=== PATIENT | female | born 1975 | race African-American/Black ===

== ENCOUNTER 2021-03-14 10:35 | Inpatient (IN) ==
[2021-03-14] MEDS ORDERED: hydrALAZINE 20 MG/1 ML VIAL IV STA (10:59)
[2021-03-14 11:27] LABS: Basophils % 0.3 % (0.0-0.8); Eosinophils # 0.1 10*3/uL (0.0-0.87); Eosinophils % 1.6 % (0.00-10.9); Hematocrit 19.5 VOL% (35.7-47.0); Immature Granulocytes % 1.6 %; Lymphocytes # 0.3 10*3/uL (1.4-4.0); Lymphocytes % 5.4 % (21.3-54.2); Mean Corpuscular HGB Conc 31.3 GM/DL (32-36); Mean Platelet Volume 10.4 FL (9.6-12.0); Monocytes % 6.4 % (1.7-12.7); Neutrophils % 84.7 % (38.7-73.9); Platelet Count 247 T/CUMM (130-400); Red Blood Count 2.35 MC/CUMM (3.8-5.5); Red Cell Distribution Width 16.4 % (9.3-17.3); White Blood Count 6.3 T/CUMM (4-12)
[2021-03-14 11:32] LABS: Hemoglobin 6.1 GM/DL (12.0-16.0)
[2021-03-14 11:52] LABS: Albumin 3.4 G/DL (3.4-5.0); Bilirubin,Total 0.6 MG/DL (0.20-1.00); Osmolality,Calculated 312.5 MOS/KG (273-304); Total Protein 7.9 G/DL (6.4-8.2)
[2021-03-14 11:57] LABS: Calcium 5.3 MG/DL (8.5-10.1)
[2021-03-14] MEDS ORDERED: CALCIUM GLUCONATE 1,000 MG in SODIUM CHLORIDE 0.9% 100 ML IV ONE ×2 (12:35→13:37)
[2021-03-14] MEDS ORDERED: ACETAMINOPHEN 500 MG TABLET PO STA (12:44)
[2021-03-14] MEDS ORDERED: ACETAMINOPHEN 325 MG TABLET PO PRN (13:27)
[2021-03-14] MEDS ORDERED: GLUCAGON 1 MG VIAL IM PRN (13:27)
[2021-03-14] MEDS ORDERED: ONDANSETRON 4 MG/2 ML VIAL IV PRN (13:27)
[2021-03-14] MEDS ORDERED: DEXTROSE 50% 25 GM/50 ML VIAL IV PRN (13:27)
[2021-03-14] MEDS ORDERED: HEPARIN 5,000 UNIT/1 ML VIAL SUBCUT SCH (13:30)
[2021-03-14] MEDS ORDERED: SODIUM CHLORIDE 0.9% 1,000 ML IV PRN (13:31)
[2021-03-14 14:37] LABS: Uric Acid 13.9 MG/DL (2.6-6.0)
[2021-03-14 14:57] LABS: % Iron Saturation 21.1 % (18-50); Ferritin 549.1 ng/mL (8-252)
[2021-03-14 15:35] LABS: Basophils % 0.4 % (0.0-0.8); Eosinophils # 0.1 10*3/uL (0.0-0.87); Eosinophils % 0.9 % (0.00-10.9); Hematocrit 20.7 VOL% (35.7-47.0); Immature Granulocytes % 4.6 %; Immature Granulocytes Absolute 0.31 #; Lymphocytes # 0.4 10*3/uL (1.4-4.0); Mean Corpuscular HGB Conc 30.4 GM/DL (32-36); Mean Corpuscular Volume 83.5 FL (87-102); Mean Platelet Volume 11.4 FL (9.6-12.0); Monocytes % 9.3 % (1.7-12.7); Neutrophils % 78.8 % (38.7-73.9); Platelet Count 260 T/CUMM (130-400); Red Blood Count 2.48 MC/CUMM (3.8-5.5); Red Cell Distribution Width 16.3 % (9.3-17.3); White Blood Count 6.8 T/CUMM (4-12)
[2021-03-14 15:42] LABS: Hemoglobin 6.3 GM/DL (12.0-16.0)
[2021-03-14] MEDS: SODIUM BICARB INJ 50 MEQ in SODIUM CHLORIDE 0.45% 1,000 ML IV SCH (15:56)
[2021-03-14] MEDS: niCARdipine INJ 25 MG in SODIUM CHLORIDE 0.9% 240 ML IV SCH ×2 (16:00→21:19)
[2021-03-14] MEDS: CALCIUM (CARBONATE) 500 MG TABLET PO SCH (16:12)
[2021-03-14 16:41] LABS: Sedimentation Rate-Westergren 136 MM/HR (0-20)
[2021-03-14 20:24] LABS: Bacteria,Urine Occasional /HPF (Few); Bilirubin,Urine Negative (Negative); Blood, Urine Negative (Negative); Glucose,Urine (UA) Negative (Negative); Hyaline Casts,Urine 1 /LPF (0-3); Ketones,Urine Negative (Negative); Nitrite,Urine Negative (Negative); Protein,Urine >=500 MG/DL; RBC,Urine 2 /HPF (0-4); Squamous Epithelial Cell,Urine Few /HPF (0-10); Urine Appearance Slightly Hazy (Clear); Urine Color Yellow (Yellow); Urine Specific Gravity 1.011 (1.001-1.035); Urine Urobilinogen < 2.0 EU/DL (0.2-1.0)
[2021-03-14 21:18] LABS: Barbiturates Screen,Urine Negative (Negative); Benzodiazepines Screen,Urine Negative (Negative); Cannabinoid Screen,Urine Negative (Negative); Opiate Screen,Urine Negative (Negative); Phencyclidine Screen,Urine Negative (Negative)
[2021-03-14 22:43] LABS: Parathyroid Hormone Intact 617.2 PG/ML (18.4-80.1)
[2021-03-14 23:19] LABS: Folate 18.51 NG/ML (5.38-24.0); Hepatitis B Core IgM Quant 0.07 Index; Hepatitis B Surface Ag Quant < 0.10 Index; Hepatitis B Surface Ag Result Non-Reactive (NonReactive); Hepatitis C Virus Ab Quant 0.04 Index; Hepatitis C Virus Ab Result Non-Reactive (NonReactive); Vitamin B12 > 2000 PG/ML (211-911)
[2021-03-15] MEDS: SODIUM BICARB INJ 50 MEQ in SODIUM CHLORIDE 0.45% 1,000 ML IV SCH ×2 (03:03→14:27)
[2021-03-15] MEDS: niCARdipine INJ 25 MG in SODIUM CHLORIDE 0.9% 240 ML IV SCH ×4 (03:06→19:33)
[2021-03-15 05:29] LABS: Basophils % 0.4 % (0.0-0.8); Eosinophils # 0.1 10*3/uL (0.0-0.87); Eosinophils % 1.7 % (0.00-10.9); Hemoglobin 7.5 GM/DL (12.0-16.0); Immature Granulocytes % 1.1 %; Immature Granulocytes Absolute 0.08 #; Lymphocytes # 0.4 10*3/uL (1.4-4.0); Lymphocytes % 5.6 % (21.3-54.2); Mean Corpuscular HGB Conc 32.6 GM/DL (32-36); Mean Corpuscular Volume 83.3 FL (87-102); Mean Platelet Volume 10.8 FL (9.6-12.0); Monocytes % 7.3 % (1.7-12.7); Neutrophils % 83.9 % (38.7-73.9); Platelet Count 218 T/CUMM (130-400); Red Blood Count 2.76 MC/CUMM (3.8-5.5); Red Cell Distribution Width 16.2 % (9.3-17.3); White Blood Count 7.1 T/CUMM (4-12)
[2021-03-15 06:05] LABS: Bilirubin,Total 0.9 MG/DL (0.20-1.00); Osmolality,Calculated 313.2 MOS/KG (273-304); Potassium 4.1 MMOL/L (3.5-5.1); Total Protein 7.1 G/DL (6.4-8.2)
[2021-03-15 06:09] LABS: Calcium 5.6 MG/DL (8.5-10.1)
[2021-03-15] MEDS ORDERED: BUPIVACAINE MPF 0.25% 30 ML VIAL ONE (07:14)
[2021-03-15] MEDS ORDERED: HEPARIN 5,000 UNIT/1 ML VIAL ONE (07:14)
[2021-03-15] MEDS ORDERED: LIDOCAINE 1%/EPI INJ 20 ML VIAL ONE (07:14)
[2021-03-15] MEDS ORDERED: TISSUE ADHESIVE 1 EACH APPLICATOR TOP ONE (07:14)
[2021-03-15] MEDS: calcitrioL 0.25 MCG CAPSULE PO SCH ×2 (07:31→09:57)
[2021-03-15] MEDS ORDERED: CALCIUM GLUCONATE 2,000 MG in SODIUM CHLORIDE 0.9% 100 ML IV ONE (08:00)
[2021-03-15] MEDS ORDERED: MIDAZOLAM 2 MG/2 ML VIAL ONE (08:16)
[2021-03-15] MEDS ORDERED: fentaNYL 100 MCG/2 ML VIAL ONE (08:16)
[2021-03-15] MEDS ORDERED: ETOMIDATE 40 MG/20 ML VIAL IV ONE (08:27)
[2021-03-15] MEDS ORDERED: propofoL 200 MG/20 ML VIAL IV ONE (08:27)
[2021-03-15] MEDS ORDERED: ceFAZolin 1,000 MG VIAL ONE (08:28)
[2021-03-15] MEDS ORDERED: LIDOCAINE 2% 5 ML VIAL ONE (08:31)
[2021-03-15] MEDS: CALCIUM (CARBONATE) 500 MG TABLET PO SCH ×3 (09:56→18:45)
[2021-03-15] MEDS ORDERED: HEPARIN 10,000 UNIT/10 ML VIAL IV SCH (13:15)
[2021-03-15] MEDS ORDERED: EPOETIN ALFA-EPBX 10,000 UNIT/ML VIAL IV PRN (16:00)
[2021-03-15] MEDS: carvediloL 6.25 MG TABLET PO SCH ×2 (16:42→20:43)
[2021-03-15] MEDS ORDERED: MORPHINE 2 MG/1 ML SYRINGE IV PRN (20:17)
[2021-03-15] MEDS ORDERED: niCARdipine INJ 25 MG in SODIUM CHLORIDE 0.9% 240 ML IV PRN (22:52)
[2021-03-16] MEDS: SODIUM BICARB INJ 50 MEQ in SODIUM CHLORIDE 0.45% 1,000 ML IV SCH ×3 (00:52→22:19)
[2021-03-16 05:36] LABS: Basophils % 0.2 % (0.0-0.8); Eosinophils # 0.2 10*3/uL (0.0-0.87); Eosinophils % 3.7 % (0.00-10.9); Hematocrit 21.7 VOL% (35.7-47.0); Hemoglobin 6.9 GM/DL (12.0-16.0); Immature Granulocytes % 1.1 %; Immature Granulocytes Absolute 0.07 #; Lymphocytes # 0.4 10*3/uL (1.4-4.0); Mean Corpuscular HGB Conc 31.8 GM/DL (32-36); Mean Corpuscular Volume 84.1 FL (87-102); Mean Platelet Volume 11.4 FL (9.6-12.0); Monocytes % 8.6 % (1.7-12.7); Neutrophils % 79.4 % (38.7-73.9); Platelet Count 186 T/CUMM (130-400); Red Blood Count 2.58 MC/CUMM (3.8-5.5); Red Cell Distribution Width 16.3 % (9.3-17.3); White Blood Count 6.2 T/CUMM (4-12)
[2021-03-16 06:04] LABS: Calcium 6.5 MG/DL (8.5-10.1); Osmolality,Calculated 298.1 MOS/KG (273-304); Potassium 3.6 MMOL/L (3.5-5.1)
[2021-03-16] MEDS ORDERED: SODIUM CHLORIDE 0.9% 1,000 ML IV PRN ×2 (06:37→06:41)
[2021-03-16] MEDS: CALCIUM (CARBONATE) 500 MG TABLET PO SCH ×3 (08:08→16:17)
[2021-03-16] MEDS: carvediloL 6.25 MG TABLET PO SCH ×2 (08:09→20:24)
[2021-03-16] MEDS: calcitrioL 0.25 MCG CAPSULE PO SCH (08:09)
[2021-03-16] MEDS ORDERED: NIFEdipine 10 MG CAPSULE PO PRN (10:53)
[2021-03-16 23:13] LABS: Hematocrit 25.7 VOL% (35.7-47.0); Hemoglobin 8.2 GM/DL (12.0-16.0)
[2021-03-17 06:08] LABS: Basophils % 0.3 % (0.0-0.8); Eosinophils # 0.3 10*3/uL (0.0-0.87); Eosinophils % 3.7 % (0.00-10.9); Hematocrit 26.1 VOL% (35.7-47.0); Hemoglobin 8.2 GM/DL (12.0-16.0); Immature Granulocytes Absolute 0.07 #; Lymphocytes # 0.6 10*3/uL (1.4-4.0); Mean Corpuscular HGB Conc 31.4 GM/DL (32-36); Mean Corpuscular Volume 85.9 FL (87-102); Mean Platelet Volume 10.7 FL (9.6-12.0); Monocytes % 11.4 % (1.7-12.7); Neutrophils % 74.6 % (38.7-73.9); Platelet Count 175 T/CUMM (130-400); Red Blood Count 3.04 MC/CUMM (3.8-5.5); Red Cell Distribution Width 15.3 % (9.3-17.3); White Blood Count 6.8 T/CUMM (4-12)
[2021-03-17 06:55] LABS: Calcium 6.6 MG/DL (8.5-10.1); Osmolality,Calculated 296.1 MOS/KG (273-304); Potassium 3.5 MMOL/L (3.5-5.1)
[2021-03-17] MEDS: CALCIUM (CARBONATE) 500 MG TABLET PO SCH ×3 (09:36→19:07)
[2021-03-17] MEDS: calcitrioL 0.25 MCG CAPSULE PO SCH (09:36)
[2021-03-17] MEDS: carvediloL 6.25 MG TABLET PO SCH ×2 (09:36→21:02)
[2021-03-17] MEDS ORDERED: hydrALAZINE 10 MG TABLET PO PRN (10:05)
[2021-03-17] MEDS: SODIUM BICARB INJ 50 MEQ in SODIUM CHLORIDE 0.45% 1,000 ML IV SCH ×2 (11:29→21:58)
[2021-03-17] MEDS: amLODIPine 5 MG TABLET PO SCH (11:30)
[2021-03-18] MEDS: SODIUM BICARB INJ 50 MEQ in SODIUM CHLORIDE 0.45% 1,000 ML IV SCH ×2 (01:03→07:28)
[2021-03-18 05:32] LABS: Basophils % 0.3 % (0.0-0.8); Eosinophils # 0.3 10*3/uL (0.0-0.87); Eosinophils % 3.2 % (0.00-10.9); Hematocrit 28.1 VOL% (35.7-47.0); Hemoglobin 8.8 GM/DL (12.0-16.0); Immature Granulocytes % 2.8 %; Immature Granulocytes Absolute 0.22 #; Lymphocytes # 0.7 10*3/uL (1.4-4.0); Lymphocytes % 9.3 % (21.3-54.2); Mean Corpuscular HGB Conc 31.3 GM/DL (32-36); Mean Corpuscular Volume 85.9 FL (87-102); Mean Platelet Volume 10.9 FL (9.6-12.0); Monocytes % 12.4 % (1.7-12.7); Platelet Count 187 T/CUMM (130-400); Red Blood Count 3.27 MC/CUMM (3.8-5.5); Red Cell Distribution Width 14.9 % (9.3-17.3); White Blood Count 7.8 T/CUMM (4-12)
[2021-03-18 06:02] LABS: Calcium 7.3 MG/DL (8.5-10.1); Osmolality,Calculated 279.2 MOS/KG (273-304); Potassium 3.5 MMOL/L (3.5-5.1)
[2021-03-18 08:39] VITALS: BP 212/93
[2021-03-18] MEDS: amLODIPine 5 MG TABLET PO SCH (08:46)
[2021-03-18 09:31] LABS: Hemoglobin A1 (Alkaline) 97.8 % (96.5-98.5); Hemoglobin A2 (Alkaline) 2.2 % (1.5-3.5)
[2021-03-18] MEDS: CALCIUM (CARBONATE) 500 MG TABLET PO SCH ×2 (10:10→13:41)
[2021-03-18] MEDS: carvediloL 6.25 MG TABLET PO SCH (10:10)
[2021-03-18] MEDS: calcitrioL 0.25 MCG CAPSULE PO SCH (10:10)
== END 2021-03-18 15:20 | disposition home or self-care (01) | DRG 674 ==
LOC: N.ED 10:35 → N.EDINP 13:27 → SUATTDRO 13:27 → N.EDINP 14:37 → N.TELEN 14:51
PROVIDERS: ADMIT Internal Medicine; ATTEND Internal Medicine